=== PATIENT | male | born 1935 | race Caucasian/White ===

== ENCOUNTER 2023-06-30 10:55 | Outpatient (AMB) | payer MEDICARE, SELFPAY ==
--- NOTE | 2023-06-30 11:09 | HO.NEPHOV_ITS ---
HPI HPI Comments History of Present Illness Details Terence is a 87-year-old male whom had the pleasure of seeing in follow- up for his chronic kidney disease, hypertension and gout. He has not had any gout exacerbations. He continues to be active. His blood pressure is at goal. 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 He denies chest pain, shortness of breath, paroxysmal nocturnal dyspnea, orthopnea, pedal edema or urinary symptoms. He does not take any nonsteroidal anti-inflammatories. He takes medications to keep his potassium normal. He did not have any new complaints at the time of this office visit. All other systems have been reviewed and were negative. [facility] Medical History (Updated 06/30/23 @ 14:09 by Walter Segura MD) Secondary hyperparathyroidism Renal cyst Gout Hyperkalemia Hypertension Chronic kidney disease, stage 3b Surgical History (Updated 06/30/23 @ 11:18 by Margarita Nguyen) History of knee replacement Family History (Updated 06/30/23 @ 11:16 by Margarita Nguyen) Mother Kidney disease Father Heart attack Social History (Updated 06/30/23 @ 11:15 by Margarita Nguyen) Alcohol intake: never Patient Tobacco Use Status: Never used Tobacco Vital Signs 06/30/23 11:10 06/30/23 11:55 Height 5 ft Weight 147 lb 8 oz BMI 28.8 BP 146/84 H 130/80 Blood Pressure Location Lt brachial Position Sitting Pulse 62 Pulse Source Pulse Oximeter Pulse Oximetry (%) 99 Oxygen Delivery Method Room Air Physical Exam Vital Signs: Last Vital Signs Pulse 62 06/30/23 11:10 BP 130/80 06/30/23 11:55 Pulse Ox 99 06/30/23 11:10 Oxygen Delivery Method Room Air 06/30/23 11:10 BMI result Body Mass Index 28.8 Const General: comfortable and no acute distress Orientation/consciousness: patient oriented x3 HEENT Head: Yes normocephalic Mouth: Normal oral and palatal mucosa present Eyes EOM: EOMs intact bilaterally Neck Neck: Yes supple Resp Auscultation: clear to auscultation bilaterally Cardio Jugular venous distension: no JVD Rate: regular rate GI Palpation (GI): Soft to palpation Auscultation: normal bowel sounds General: Yes no CVA tenderness Back/Spine/Pelvis Back: no CVA tenderness Skin General skin exam: no rashes or lesions noted Neuro General: patient oriented x3 and moves all extremities Extrem General: Yes no pedal edema Assessment & Plan Assessment & Plan (1) CKD (chronic kidney disease) stage 3, GFR 30-59 ml/min: Code(s): N18.30 - Chronic kidney disease, stage 3 unspecified Qualifiers: Chronic kidney disease stage 3 subtype: stage 3b (GFR 30-44) Qualified Code(s): N18.32 - Chronic kidney disease, stage 3b (2) Hypertension: Code(s): I10 - Essential (primary) hypertension Qualifiers: Hypertension type: primary hypertension Qualified Code(s): I10 - Essential (primary) hypertension (3) Renal cyst: Code(s): N28.1 - Cyst of kidney, acquired (4) Secondary hyperparathyroidism (of renal origin): Code(s): N25.81 - Secondary hyperparathyroidism of renal origin (5) Erectile disorder: Code(s): N52.9 - Male erectile dysfunction, unspecified (6) Hyperkalemia: Code(s): E87.5 - Hyperkalemia Plan Terence has stable renal functions. His serum potassium has been normal. He takes Kayexalate twice a week. He has been tolerating current dose of losartan. He continues to exercise and maintain good hydration. His blood pressure is consistently at goal. He is on statins. He maintains potassium diet. I did not make any medication changes today. Follow-up blood work ordered. All questions answered. Appointment given. Orders: Orders Electrolytes Today I10 - Essential (primary) hypertension, N18.30 - Chronic kidney disease, stage 3 unspecified Blood Urea Nitrogen Today I10 - Essential (primary) hypertension, N18.30 - Chronic kidney disease, stage 3 unspecified Creatinine Today I10 - Essential (primary) hypertension, N18.30 - Chronic kidney disease, stage 3 unspecified Coding Level of Care Code Est Pt Level 3 (46115) Diagnoses Stage 3b chronic kidney disease N18.32 Chronic kidney disease stage 3 subtype: stage 3b (GFR 30-44) Primary hypertension I10 Hypertension type: primary hypertension Renal cyst N28.1 Secondary hyperparathyroidism (of renal origin) N25.81 Erectile disorder N52.9 Hyperkalemia E87.5 Results Reviewed Nephrology Results: No Data to Display
[2023-06-30 11:10] VITALS: BP 146/84; PULSE 62; O2SAT 99; BMI 28.8
[2023-06-30 11:55] VITALS: BP 130/80
== END 2023-06-30 12:03 | disposition home or self-care (01) ==
PROVIDERS: PCP Hospitalist; Visit Provider Internal Medicine Nephrology
DX: N18.32 Chronic kidney disease, stage 3b (principal); I10 Essential (primary) hypertension; N28.1 Cyst of kidney, acquired; N25.81 Secondary hyperparathyroidism of renal origin; N52.9 Male erectile dysfunction, unspecified; E87.5 Hyperkalemia
CPT/HCPCS: 99213

== ENCOUNTER → 2023-06-30 10:55 | Outpatient (BNVA) | payer MEDICARE, SELFPAY | PROVIDERS: PCP Hospitalist; Visit Provider Internal Medicine Nephrology | DX: I12.9 Hypertensive chronic kidney disease with stage 1 through stage 4 chronic kidney disease, or unspecified chronic kidney disease (principal); N18.32 Chronic kidney disease, stage 3b; N25.81 Secondary hyperparathyroidism of renal origin; N28.1 Cyst of kidney, acquired; N52.9 Male erectile dysfunction, unspecified; E87.5 Hyperkalemia | CPT/HCPCS: 99212 ==

== ENCOUNTER 2023-10-27 14:29 | Outpatient (AMB) | payer MEDICARE, SELFPAY ==
--- NOTE | 2023-10-27 14:51 | HO.NEPHOV ---
Vital Signs 10/27/23 14:52 Height 5 ft Weight 144 lb 2 oz BMI 28.1 BP 130/80 Blood Pressure Location Lt brachial Position Sitting Pulse 57 Pulse Source Pulse Oximeter Pulse Oximetry (%) 96 Oxygen Delivery Method Room Air Intake Visit Reasons: 4M follow up/ [facility] [employer] Required: No Accompanied by: Self / Same As Patient Allergies amlodipine Allergy (Verified 10/27/23 14:54) Unknown penicillamine Allergy (Verified 10/27/23 14:54) Unknown Penicillins Allergy (Verified 10/27/23 14:54) Unknown red dye Allergy (Verified 10/27/23 14:54) Unknown HPI Comments Details: Terence is a 87-year-old male whom had the pleasure of seeing in follow-up for his chronic kidney disease, hypertension and gout. He has not had any gout exacerbations. He continues to be active. His blood pressure is at goal. 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 He denies chest pain, shortness of breath, paroxysmal nocturnal dyspnea, orthopnea, pedal edema or urinary symptoms. He does not take any nonsteroidal anti-inflammatories. He takes medications to keep his potassium normal. He did not have any new complaints at the time of this office visit. All other systems have been reviewed and were negative. [facility] Medical History (Updated 06/30/23 @ 14:09 by Walter Segura MD) Secondary hyperparathyroidism Renal cyst Gout Hyperkalemia Hypertension Chronic kidney disease, stage 3b Surgical History History of knee replacement Family History Mother Kidney disease Father Heart attack Social History Alcohol intake: never Patient Tobacco Use Status: Never used Tobacco Physical Exam Vital Signs: Last Vital Signs Pulse 57 10/27/23 14:52 BP 130/80 10/27/23 14:52 Pulse Ox 96 10/27/23 14:52 Oxygen Delivery Method Room Air 10/27/23 14:52 BMI result Body Mass Index 28.1 Const General: comfortable and no acute distress Orientation/consciousness: patient oriented x3 HEENT Head: Yes normocephalic Mouth: Normal oral and palatal mucosa present Eyes EOM: EOMs intact bilaterally Neck Neck: Yes supple Resp Auscultation: clear to auscultation bilaterally Cardio Jugular venous distension: no JVD Rate: regular rate GI Palpation (GI): Soft to palpation Auscultation: normal bowel sounds General: Yes no CVA tenderness Back/Spine/Pelvis Back: no CVA tenderness Skin General skin exam: no rashes or lesions noted Neuro General: patient oriented x3 and moves all extremities Extrem General: Yes no pedal edema Results Reviewed Nephrology Results: No Data to Display Assessment & Plan Assessment & Plan (1) Secondary hyperparathyroidism (of renal origin): Code(s): N25.81 - Secondary hyperparathyroidism of renal origin Category: Medical (2) Hyperkalemia: Code(s): E87.5 - Hyperkalemia Category: Medical (3) Renal cyst: Code(s): N28.1 - Cyst of kidney, acquired Category: Medical (4) Hypertension: Code(s): I10 - Essential (primary) hypertension Category: Medical Qualifiers: Hypertension type: primary hypertension Qualified Code(s): I10 - Essential (primary) hypertension (5) CKD (chronic kidney disease) stage 3, GFR 30-59 ml/min: Code(s): N18.30 - Chronic kidney disease, stage 3 unspecified Category: Medical Qualifiers: Chronic kidney disease stage 3 subtype: stage 3b (GFR 30-44) Qualified Code(s): N18.32 - Chronic kidney disease, stage 3b Virginie Pratt has stable renal functions. His serum potassium has been high normal. He takes Kayexalate twice a week. He has been tolerating current dose of losartan. He continues to exercise and maintain good hydration. His blood pressure is consistently at goal. He is on statins. He maintains potassium diet. I did not make any medication changes today. Follow-up blood work ordered. All questions answered. Appointment given. Orders: Orders Vitamin D 25-OH Total Today E87.5 - Hyperkalemia, I10 - Essential (primary) hypertension, N18.32 - Chronic kidney disease, stage 3b, N25.81 - Secondary hyperparathyroidism of renal origin, N28.1 - Cyst of kidney, acquired Creatinine Today E87.5 - Hyperkalemia, I10 - Essential (primary) hypertension, N18.32 - Chronic kidney disease, stage 3b, N25.81 - Secondary hyperparathyroidism of renal origin, N28.1 - Cyst of kidney, acquired Blood Urea Nitrogen Today E87.5 - Hyperkalemia, I10 - Essential (primary) hypertension, N18.32 - Chronic kidney disease, stage 3b, N25.81 - Secondary hyperparathyroidism of renal origin, N28.1 - Cyst of kidney, acquired Electrolytes Today E87.5 - Hyperkalemia, I10 - Essential (primary) hypertension, N18.32 - Chronic kidney disease, stage 3b, N25.81 - Secondary hyperparathyroidism of renal origin, N28.1 - Cyst of kidney, acquired Parathyroid Hormone Intact Today E87.5 - Hyperkalemia, I10 - Essential (primary) hypertension, N18.32 - Chronic kidney disease, stage 3b, N25.81 - Secondary hyperparathyroidism of renal origin, N28.1 - Cyst of kidney, acquired Medications: Changed From sodium polystyrene sulfonate PO To sodium polystyrene sulfonate 15 grams PO .twice weekly 90 days 454 grams 6RF Coding Level of Care Code Est Pt Level 4 (00504) Diagnoses Secondary hyperparathyroidism (of renal origin) N25.81 Hyperkalemia E87.5 Renal cyst N28.1 Primary hypertension I10 Hypertension type: primary hypertension Stage 3b chronic kidney disease N18.32 Chronic kidney disease stage 3 subtype: stage 3b (GFR 30-44)
[2023-10-27 14:52] VITALS: BP 130/80; PULSE 57; O2SAT 96; BMI 28.1
== END 2023-10-27 15:25 | disposition home or self-care (01) ==
PROVIDERS: PCP Hospitalist; Visit Provider Internal Medicine Nephrology
DX: N25.81 Secondary hyperparathyroidism of renal origin (principal); E87.5 Hyperkalemia; N28.1 Cyst of kidney, acquired; I10 Essential (primary) hypertension; N18.32 Chronic kidney disease, stage 3b
CPT/HCPCS: 99214

== ENCOUNTER → 2023-10-27 14:29 | Outpatient (BNVA) | payer MEDICARE, SELFPAY | PROVIDERS: PCP Hospitalist; Visit Provider Internal Medicine Nephrology | DX: I12.9 Hypertensive chronic kidney disease with stage 1 through stage 4 chronic kidney disease, or unspecified chronic kidney disease (principal); N18.32 Chronic kidney disease, stage 3b; N25.81 Secondary hyperparathyroidism of renal origin; N28.1 Cyst of kidney, acquired; E87.5 Hyperkalemia | CPT/HCPCS: 99212 ==

== ENCOUNTER 2024-02-23 15:38 | Outpatient (AMB) | payer MEDICARE, SELFPAY ==
[2024-02-23 16:12] VITALS: BP 140/80; PULSE 53; O2SAT 100; BMI 27.8
--- NOTE | 2024-02-23 16:12 | HO.NEPHOV_ITS ---
Vital Signs 02/23/24 16:12 Height 5 ft Weight 142 lb 4 oz BMI 27.8 BP 140/80 H Blood Pressure Location Lt brachial Position Sitting Pulse 53 Pulse Source Pulse Oximeter Pulse Oximetry (%) 100 Oxygen Delivery Method Room Air Intake Visit Reasons: 4mon follow up- [facility] [place] [employer] Operator Required: No Accompanied by: Self / Same As Patient Allergies amlodipine Allergy (Verified 02/23/24 16:14) Unknown penicillamine Allergy (Verified 02/23/24 16:14) Unknown Penicillins Allergy (Verified 02/23/24 16:14) Unknown red dye Allergy (Verified 02/23/24 16:14) Unknown HPI Comments Details: Terence is a 88-year-old male whom had the pleasure of seeing in follow-up for his chronic kidney disease, hypertension and gout. He has not had any gout exacerbations. He continues to be active. His blood pressure is at goal. 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 He denies chest pain, shortness of breath, paroxysmal nocturnal dyspnea, orthopnea, pedal edema or urinary symptoms. He does not take any nonsteroidal anti-inflammatories. He takes medications to keep his potassium normal. He did not have any new complaints at the time of this office visit. All other systems have been reviewed and were negative. [facility] Medical History (Updated 06/30/23 @ 14:09 by Walter Segura MD) Secondary hyperparathyroidism Renal cyst Gout Hyperkalemia Hypertension Chronic kidney disease, stage 3b Surgical History History of knee replacement Family History Mother Kidney disease Father Heart attack Social History Alcohol intake: never Patient Tobacco Use Status: Never used Tobacco Review of Systems Const All systems reviewed & are unremarkable except as noted in HPI and below Physical Exam Vital Signs: Last Vital Signs Pulse 53 02/23/24 16:12 BP 160/80 H 02/23/24 16:12 Pulse Ox 100 02/23/24 16:12 Oxygen Delivery Method Room Air 02/23/24 16:12 BMI result Body Mass Index 27.8 Const General: comfortable and no acute distress Orientation/consciousness: patient oriented x3 HEENT Head: Yes normocephalic Mouth: Normal oral and palatal mucosa present Eyes EOM: EOMs intact bilaterally Neck Neck: Yes supple Resp Auscultation: clear to auscultation bilaterally Cardio Jugular venous distension: no JVD Rate: regular rate GI Palpation (GI): Soft to palpation Auscultation: normal bowel sounds General: Yes no CVA tenderness Back/Spine/Pelvis Back: no CVA tenderness Skin General skin exam: no rashes or lesions noted Neuro General: patient oriented x3 and moves all extremities Extrem General: Yes no pedal edema Results Reviewed Nephrology Results: No Data to Display Assessment & Plan Assessment & Plan (1) CKD (chronic kidney disease) stage 3, GFR 30-59 ml/min: Code(s): N18.30 - Chronic kidney disease, stage 3 unspecified Category: Medical Qualifiers: Chronic kidney disease stage 3 subtype: stage 3b (GFR 30-44) Qualified Code(s): N18.32 - Chronic kidney disease, stage 3b (2) Hypertension: Code(s): I10 - Essential (primary) hypertension Category: Medical Qualifiers: Hypertension type: primary hypertension Qualified Code(s): I10 - Essent ial (primary) hypertension (3) Renal cyst: Code(s): N28.1 - Cyst of kidney, acquired Category: Medical (4) Secondary hyperparathyroidism (of renal origin): Code(s): N25.81 - Secondary hyperparathyroidism of renal origin Category: Medical Plan Terence has stable renal functions. His serum potassium has been high normal. He takes Kayexalate twice a week. He has been tolerating current dose of losartan. He continues to exercise and maintain good hydration. His blood pressure is consistently at goal at home. He is on statins. He maintains potassium diet. I did not make any medication changes today. Follow-up blood work ordered. All questions answered. Appointment given. Orders: Orders Creatinine Today I10 - Essential (primary) hypertension, N18.32 - Chronic kidney disease, stage 3b, N25.81 - Secondary hyperparathyroidism of renal origin, N28.1 - Cyst of kidney, acquired Blood Urea Nitrogen Today I10 - Essential (primary) hypertension, N18.32 - Chronic kidney disease, stage 3b, N25.81 - Secondary hyperparathyroidism of renal origin, N28.1 - Cyst of kidney, acquired Electrolytes Today I10 - Essential (primary) hypertension, N18.32 - Chronic kidney disease, stage 3b, N25.81 - Secondary hyperparathyroidism of renal origin, N28.1 - Cyst of kidney, acquired Coding Level of Care Code Est Pt Level 4 (26469) Diagnoses Stage 3b chronic kidney disease N18.32 Chronic kidney disease stage 3 subtype: stage 3b (GFR 30-44) Primary hypertension I10 Hypertension type: primary hypertension Renal cyst N28.1 Secondary hyperparathyroidism (of renal origin) N25.81
== END 2024-02-23 16:39 | disposition home or self-care (01) ==
PROVIDERS: PCP Hospitalist; Visit Provider Internal Medicine Nephrology
DX: N18.32 Chronic kidney disease, stage 3b (principal); I10 Essential (primary) hypertension; N28.1 Cyst of kidney, acquired; N25.81 Secondary hyperparathyroidism of renal origin
CPT/HCPCS: 99214

== ENCOUNTER → 2024-02-23 15:38 | Outpatient (BNVA) | payer MEDICARE, SELFPAY | PROVIDERS: PCP Hospitalist; Visit Provider Internal Medicine Nephrology | DX: I12.9 Hypertensive chronic kidney disease with stage 1 through stage 4 chronic kidney disease, or unspecified chronic kidney disease (principal); N18.32 Chronic kidney disease, stage 3b; N28.1 Cyst of kidney, acquired; N25.81 Secondary hyperparathyroidism of renal origin | CPT/HCPCS: 99212 ==

== ENCOUNTER 2024-08-16 14:06 | Outpatient (AMB) | payer MEDICARE, SELFPAY ==
--- NOTE | 2024-08-16 14:16 | HO.NEPHOV ---
Vital Signs 08/16/24 14:17 Height 5 ft Weight 145 lb 4 oz BMI 28.4 BP 120/70 Blood Pressure Location Lt brachial Position Sitting Intake Visit Reasons: 6mon follow up-[facility] [employer] Required: No Accompanied by: Spouse Allergies amlodipine Allergy (Verified 08/16/24 14:16) Unknown penicillamine Allergy (Verified 08/16/24 14:16) Unknown Penicillins Allergy (Verified 08/16/24 14:16) Unknown red dye Allergy (Verified 08/16/24 14:16) Unknown HPI Comments Details: Terence is a 88-year-old male whom had the pleasure of seeing in follow-up for his chronic kidney disease, hypertension and gout. He has not had any gout exacerbations. He continues to be active. His blood pressure is at goal. 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 He denies chest pain, shortness of breath, paroxysmal nocturnal dyspnea, orthopnea, pedal edema or urinary symptoms. He does not take any nonsteroidal anti-inflammatories. He takes medications to keep his potassium normal. He has been started on Amlodipine [address] Owusu. He did not have any new complaints at the time of this office visit. All other systems have been reviewed and were negative. [facility] Medical History (Updated 06/30/23 @ 14:09 by Walter Segura MD) Secondary hyperparathyroidism Renal cyst Gout Hyperkalemia Hypertension Chronic kidney disease, stage 3b Surgical History History of knee replacement Family History Mother Kidney disease Father Heart attack Social History Alcohol intake: never Patient Tobacco Use Status: Never used Tobacco Review of Systems Const All systems reviewed & are unremarkable except as noted in HPI and below Physical Exam Vital Signs: Last Vital Signs BP 166/70 H 08/16/24 14:17 BMI result Body Mass Index 28.4 Const General: comfortable and no acute distress Orientation/consciousness: patient oriented x3 HEENT Head: Yes normocephalic Mouth: Normal oral and palatal mucosa present Eyes EOM: EOMs intact bilaterally Neck Neck: Yes supple Resp Auscultation: clear to auscultation bilaterally Cardio Jugular venous distension: no JVD Rate: regular rate GI Palpation (GI): Soft to palpation Auscultation: normal bowel sounds Skin General skin exam: no rashes or lesions noted Neuro General: patient oriented x3 and moves all extremities Extrem General: Yes no pedal edema Results Reviewed Nephrology Results: No Data to Display Assessment & Plan Assessment & Plan (1) Secondary hyperparathyroidism (of renal origin): Code(s): N25.81 - Secondary hyperparathyroidism of renal origin Category: Medical (2) Hyperkalemia: Code(s): E87.5 - Hyperkalemia Category: Medical (3) Renal cyst: Code(s): N28.1 - Cyst of kidney, acquired Category: Medical (4) Hypertension: Code(s): I10 - Essential (primary) hypertension Category: Medical Qualifiers: Hypertension type: primary hypertension Qualified Code(s): I10 - Essential (primary) hypertension (5) CKD (chronic kidney disease) stage 3, GFR 30-59 ml/min: Code(s): N18.30 - Chronic kidney disease, stage 3 unspecified Category: Medical Qualifiers: Chronic kidney disease stage 3 subtype: stage 3b (GFR 30-44) Qualified Code(s): N18.32 - Chronic kidney disease, stage 3b Virginie Pratt has stable renal functions. His serum potassium has been high normal. He takes Kayexalate twice a week. He has been tolerating current dose of losartan. He continues to exercise and maintain good hydration. I started him on Vitamin D 81080 U once a week. His blood pressure is consistently at goal at home. He is on statins. He maintains potassium diet. I did not make any medication changes today. Follow-up blood work ordered. All questions answered. Appointment given. Orders: Orders Vitamin D 25-OH Total 6 Months E87.5 - Hyperkalemia, I10 - Essential (primary) hypertension, N18.32 - Chronic kidney disease, stage 3b, N25.81 - Secondary hyperparathyroidism of renal origin, N28.1 - Cyst of kidney, acquired Creatinine 6 Months E87.5 - Hyperkalemia, I10 - Essential (primary) hypertension, N18.32 - Chronic kidney disease, stage 3b, N25.81 - Secondary hyperparathyroidism of renal origin, N28.1 - Cyst of kidney, acquired Calcium 6 Months E87.5 - Hyperkalemia, I10 - Essential (primary) hypertension, N18.32 - Chronic kidney disease, stage 3b, N25.81 - Secondary hyperparathyroidism of renal origin, N28.1 - Cyst of kidney, acquired Blood Urea Nitrogen 6 Months E87.5 - Hyperkalemia, I10 - Essential (primary) hypertension, N18.32 - Chronic kidney disease, stage 3b, N25.81 - Secondary hyperparathyroidism of renal origin, N28.1 - Cyst of kidney, acquired Electrolytes 6 Months E87.5 - Hyperkalemia, I10 - Essential (primary) hypertension, N18.32 - Chronic kidney disease, stage 3b, N25.81 - Secondary hyperparathyroidism of renal origin, N28.1 - Cyst of kidney, acquired Medications: New cholecalciferol (vitamin D3) 1,250 mcg PO QWEEK 14 caps 1RF Coding Level of Care Code Est Pt Level 4 (03122) Diagnoses Secondary hyperparathyroidism (of renal origin) N25.81 Hyperkalemia E87.5 Renal cyst N28.1 Primary hypertension I10 Hypertension type: primary hypertension Stage 3b chronic kidney disease N18.32 Chronic kidney disease stage 3 subtype: stage 3b (GFR 30-44)
[2024-08-16 14:17] VITALS: BP 120/70; BMI 28.4
--- OUTSIDE RECORDS SUMMARY | 2024-08-16 17:17 | XMS_ITS | Patient Health Record ---
Author Organization [facility] Address [address] [place] [address] Care Team Providers Care Software Engineer Web Applications Name Role Phone KINSEY CLOUD Primary Care Provider Sage Arcos Unavailable [phone] Allergies Allergen (clinical drug ingredient) Drug/Non Drug Allergy documented on EMR Reaction Allergy Type Onset Date Status red dye (uncoded) Unknown Allergy Ac tive amlodipine Amlodipine Besylate Unknown Drug Allergy Active penicillamine Penicillamine Unknown Drug Allergy Active Results Component Value Reference Range Notes Jose R Mccauley LP Default Reviewed date:09/07/2023 04:27:11 PM Interpretation: Performing Lab:[facility], [facility], Phone - [phone], Director - Frieda Notes/Report: Jose R Mccauley LP Default A hand-written panel/profile was received from your office. In accordance with the [facility] Ambiguous Test Code Policy dated December 2002, we have completed your order by using the closest currently or formerly recognized AMA panel. We have assigned Lipid Panel, Test Code #940663 to this request. If this is not the testing you wished to receive on this specimen, please contact the [facility] Client Inquiry/Technical Services Department to clarify the test order. We appreciate your business. Comp. Metabolic Panel ([id number] Reviewed date:09/08/2023 08:24:50 AM Interpretation: Performing Lab:[facility], [address], [place], Phone - [phone], Director - Frieda Notes/Report: Glucose 130 70-99 mg/dL BUN 61 8-27 mg/dL Creatinine 2.09 0.76-1.27 mg/dL eGFR 30 >59 mL/min/1.73 BUN/Creatinine Ratio 29 10-24 Sodium 143 134-144 mmol/L Potassium 5.8 3.5-5.2 mmol/L Chloride 107 96-106 mmol/L Carbon Dioxide, Total 20 20-29 mmol/L Calcium 9.7 8.6-10.2 mg/dL Protein, Total 7.0 6.0-8.5 g/dL Albumin 4.2 3.7-4.7 g/dL Globulin, Total 2.8 1.5-4.5 g/dL A/G Ratio 1.5 1.2-2.2 Bilirubin, Total 0.6 0.0-1.2 mg/dL Alkaline Phosphatase 111 44-121 IU/L AST (SGOT) 18 0-40 IU/L ALT (SGPT) 12 0-44 IU/L Lipid Panel-[id number] Reviewed date:09/07/2023 04:29:09 PM Interpretation: Performing Lab:[facility], [address] [place] [address], Phone - [phone], Director - MDJodry Notes/Report: Cholesterol, Total 166 100-199 mg/dL Triglycerides 71 0-149 mg/dL HDL Cholesterol 60 >39 mg/dL VLDL Cholesterol Rui 14 5-40 mg/dL LDL Chol Calc ([facility]) 92 0-99 mg/dL Albumin/Creatinine Ratio,Uri ne-[id number] Reviewed date:09/07/2023 04:29:05 PM Interpretation: Performing Lab:[facility], [address] [place] [address], Phone - [phone], Director - MDJodry Notes/Report: Creatinine, Urine 79.8 Not Estab. mg/dL Albumin, Urine 58.4 Not Estab. ug/mL Alb/Creat Ratio 73 0-29 mg/g creat Normal: 0 - 29 Moderately increased: 30 - 300 Severely increased: >300 Hgb A1c with eAG Estimation- [id number] Reviewed date:09/07/2023 04:29:03 PM Interpretation: Performing Lab:[facility], [address] [place] [address], Phone - [phone], Director - MDJodry Notes/Report: Hemoglobin A1c 5.9 4.8-5.6 % . Prediabetes: 5.7 - 6.4 Diabetes: >6.4 Glycemic control for adults with diabetes: <7.0 Estim. Avg Glu (eAG) 123 Ambig Abbrev BMP8 Default A hand-written panel/profile was received from your office. In accordance with the [facility] Ambiguous Test Code Policy dated December 2002, we have completed your order by using the closest currently or formerly recognized AMA panel. We have assigned Basic Metabolic Panel (8), Test Code #[id number] to this request. If this is not the testing you wished to receive on this specimen, please contact the [facility] Client Inquiry/Technical Services Department to clarify the test order. We appreciate your business. Jose R Mccauley CMP14 Default A hand-written panel/profile was received from your office. In accordance with the [facility] Ambiguous Test Code Policy dated December 2002, we have completed your order by using the closest currently or formerly recognized AMA panel. We have assigned Comprehensive Metabolic Panel (14), Test Code #998604 to this request. If this is not the testing you wished to receive on this specimen, please contact the [facility] Client Inquiry/Technical Services Department to clarify the test order. We appreciate your business. Reason For Referral Reason Evaluation and manag ement Diagnosis 1 Abnormal result of o ther cardiovascular function study (R94.39) Referral Organization [facility] ter Referring Provider First Name EUCEDA Referring Provider Last Name JESSICA Referring Provider Speciality Internal M edicine Referred Provider Specialty Cardiology General Notes Referral sent - Dept will call patient for scheduling., Facundo Daly 10/31/2023 04:34:05 PM > Referral Priority Routine Medications Medication SIG (Take, Route, Frequency, Duration) Notes Start Date End Date Status Benzonatate 100 MG 1 capsule as needed Orally Three times a day for 21 days Active Atorvastatin Calcium 10 MG 1 tablet Oral ly Once a day for 90 days Active Benzonatate 100 MG 1 capsule as needed Orally Three times a day for 7 days 07/27/2023 Not-Taking Carvedilol 6.25 MG TAKE 1 TABLET BY EDMAR TH TWICE A DAY WITH FOOD for 90 Active Allopurinol 100 MG 1 tablet Orally twic e a day for 90 days Active Losartan Potassium 25 MG 1 tablet Orally Once a day for 90 days Active Timolol Maleate 0.5 % 1 drop into both e ye Ophthalmic twice a day Active Veltassa 8.4 GM 1 packet dissolved i n water. Take other medications at least 3 hours before or 3 hours after this medication Orally once a week Active Hydrocortisone Activ e PreserVision AREDS - as directed Orally TWICE A DAY Active Immunizations Vaccine Route Administration Date Status Comme nts COVID Unknown 07/05/2020 Administered Moderna COVID Unknown 08/08/2020 Administered Moderna COVID Unknown 01/27/2021 Administered Moderna at C VS-booster Influenza, high dose seasonal Unknown 03/13/2019 Administered Influenza, high dose seasonal Unknown 03/16/2021 Administered Shingrix Unknown 04/30/2021 Administered Social History Tobacco Use: Social History Observation Description Date Details (start date - stop date) Never Smoker NA - NA Tobacco Use/Smoking Question Answer Notes Are you a nonsmoker Alcohol Screen (Audit-C) Question Answer Notes Did you have a drink containing alcohol in the p ast year? 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) Active confirmed Problem Raynaud's disease (300102191) Raynaud's syndrome without gangrene (I73.00) Active confirmed Problem Low back pain (289059610) Low back pain (M54.5) Active confirmed Problem Chronic kidney disease (870390421) Chronic kidney disease, unspecified (N18.9) Active confirmed Problem Heart murmur (finding) (24004048) Cardiac murmur, unspecified (R01.1) Active confirmed Problem Change in bowel habit (89730731) Change in bowel habit (R19.4) Active confirmed Problem Impaired fasting glucose (429105043) Impaired fasting glucose (R73.01) Active confirmed Problem Ventricular premature depolarization (050978322) Ventricular premature depolarization (I49.3) Active confirmed Problem Benign prostatic hypertrophy without outflow obstruction (050411334) Benign prostatic hyperplasia without lower urinary tract symptoms (N40.0) Active confirmed Vital Signs Heart Rate 70 /min 05/17/2024 Temperature 97.1 degrees Fahrenheit 05/17/2024 Blood pressure diastolic 80 mm Hg 05/17/2024 Oximetry 97 % 05/17/2024 Height 61.61 in 05/17/2024 Blood pressure systolic 160 mm Hg 05/17/2024 Weight 146.2 lbs 05/17/2024 BMI 27.08 kg/m2 05/17/2024 Encounters Encounter Location Date Provider Diagnosis [facility] [address] [place] [address] 09/15/2023 EUCEDA GUL Essential (primary) hypertension I10 ; Hyperlipidemia, unspecified E78.5 and Chronic kidney disease, unspecified N18.[address] [place] [address] 09/28/2023 EUCEDA GUL Chest pain, unspecified R07.9 [facility] [address] [place] [address] 12/20/2023 KINSEY LOPEZL Encounter for genera l adult medical examination without abnormal findings Z00.00 ; Essential (primary) hypertension I10 ; Hyperlipidemia, unspecified E78.5 and Chronic kidney disease, unspecified N18.9 [facility] [address] [place] [address] 01/19/2024 EUCEDA GUL Essential (primary) hypertension I10 ; Hyperlipidemia, unspecified E78.5 ; Chronic kidney disease, unspecified N18.9 and Impaired fasting glucose R73.[address] [place] [address] 04/11/2024 Ghadeer Mazloum Cough R05.[address] [place] [address] 05/17/2024 EUCEDA GUL Essential (primary) hypertension I10 ; Chronic kidney disease, unspecified N18.9 ; Impaired fasting glucose R73.01 and Hyperlipidemia, unspecified E78.[address] [place] [address] 10/25/2023 EUCEDA GUL [address] [place] [address] 10/31/2023 [facility] [address] [place] [address] 12/14/[address] [place] [address] 12/14/[address] [place] [address] 01/23/[address] [place] [address] 03/13/[address] [place] [address] 03/15/[address] [place] [address] 06/14/2024 [facility] Assessments Encounter Date Diagnosis (ICD Code) Assessment Notes Treatment Notes Treatment Clinical Notes Section Notes 09/28/2023 Chest pain, unspecified (ICD-10 - R07.9) Mr. Cornejo is an 87-year-old gentleman with CKD stage III, hypertension, hyperlipidemia and gout here complaining of intermittent chest pain associated with numbness/tingling usually after working out. Plan is as follows: Chest pain. He is high risk for coronary artery disease considering history of hypertension, hyperlipidemia, TIA, chronic kidney disease. Electrocardiogram was done today which is normal sinus rhythm at 57 bpm with right bundle branch block with no acute ST or T wave changes. Ordered stress echocardiogram. General health concerns discussed with patient. Scribe services used to formulate this note under HIPAA compliance and under [place] law mandated for scribe services. Patient aware of service. Verbal consent and written consent taken from the patient. Patient understands and verbalizes understanding of the scribes services and all questions answered regarding scribes services. Patient agrees to use of scribes services. 12/20/2023 Essential (primary) hypertension (ICD-10 - I10) Mr. Cornejo is an 88-year-old gentleman with CKD stage III, hypertension, hyperlipidemia and gout here for medicare annual wellness visit. Plan is as follows: Hypertension with chronic kidney disease. His blood pressure is running high in the office today. Cut back on sodium intake. Advised appropriate hydration, cardio exercises and weight loss. Continue Carvedilol 6.25 MG and Losartan 25 MG once a day. Advised appropriate hydration. Hyperlipidemia. Last lipid panel within normal limits. Continue Atorvastatin 10 MG at night. Gout. Stable on Allopurinol 100 MG twice a day. Chronic kidney disease stage 4. He does not appear to be in volume overload. Advised appropriate hydration. Avoid NSAIDs. He sees Dr. Segura. Impaired fasting glucose. A1c 5.9. Fasting sugars 130. Dietary restrictions, regimental exercise and weight loss advised. Eye screening. He sees his sandblaster glass regularly. Dental screening. He sees dentist regularly. Colon cancer screening. He had his colonoscopy done every 5 years. Immunizations. He is up-to-date on his COVID, influenza, shingles and pneumonia vaccinations. General health concerns discussed with patient. Scribe services used to formulate this note under HIPAA compliance and under [place] law mandated for scribe services. Patient aware of service. Verbal consent and written consent taken from the patient. Patient understands and verbalizes understanding of the scribes services and all questions answered regarding scribes services. Patient agrees to use of scribes services. 12/20/2023 Encounter for general adult medical examination without abnormal findings (ICD-10 - Z00.00) Mr. Cornejo is an 88-year-old gentleman with CKD stage III, hypertension, hyperlipidemia and gout here for medicare annual wellness visit. Plan is as follows: Hypertension with chronic kidney disease. His blood pressure is running high in the office today. Cut back on sodium intake. Advised appropriate hydration, cardio exercises and weight loss. Continue Carvedilol 6.25 MG and Losartan 25 MG once a day. Advised appropriate hydration. Hyperlipidemia. Last lipid panel within normal limits. Continue Atorvastatin 10 MG at night. Gout. Stable on Allopurinol 100 MG twice a day. Chronic kidney disease stage 4. He does not appear to be in volume overload. Advised appropriate hydration. Avoid NSAIDs. He sees Dr. Segura. Impaired fasting glucose. A1c 5.9. Fasting sugars 130. Dietary restrictions, regimental exercise and weight loss advised. Eye screening. He sees his sandblaster glass regularly. Dental screening. He sees dentist regularly. Colon cancer screening. He had his colonoscopy done every 5 years. Immunizations. He is up-to-date on his COVID, influenza, shingles and pneumonia vaccinations. General health concerns discussed with patient. Scribe services used to formulate this note under HIPAA compliance and under [place] law mandated for scribe services. Patient aware of service. Verbal consent and written consent taken from the patient. Patient understands and verbalizes understanding of the scribes services and all questions answered regarding scribes services. Patient agrees to use of scribes services. 01/19/2024 Essential (primary) hypertension (ICD-10 - I10) Mr. Cornejo is an 88-year-old gentleman with CKD stage III, hypertension, hyperlipidemia and gout here for follow up. Plan is as follows: Hypertension with chronic kidney disease. Blood pressure is within reasonable limits. Continue Carvedilol 6.25 MG and Losartan 25 MG once a day. Advised appropriate hydration. Hyperlipidemia. Last lipid panel within normal limits. Continue Atorvastatin 10 MG at night. Gout. Stable on Allopurinol 100 MG twice a day. Chronic kidney disease stage 4. He does not appear to be in volume overload. Advised appropriate hydration. Avoid NSAIDs. He sees Dr. Segura. Impaired fasting glucose. A1c 5.9. Fasting sugars 130. Dietary restrictions, regimental exercise and weight loss advised. General health concerns discussed with patient. Scribe services used to formulate this note under HIPAA compliance and under [place] law mandated for scribe services. Patient aware of service. Verbal consent and written consent taken from the patient. Patient understands and verbalizes understanding of the scribes services and all questions answered regarding scribes services. Patient agrees to use of scribes services. 04/11/2024 Cough (ICD-10 - R05.9) Mr. Cornejo is an 88-year-old gentleman with CKD stage III, hypertension, hyperlipidemia and gout here for cough. Plan as follows: Cough - DDx viral URI. Lungs are CTAB. Started patient on benzonatate. He can also use [id number] Mucinex. Advised patient that if he develops any fever, chills, productive cough with yellowish or greenish mucus then he should contact the office to get an accident to rule out any abnormalities. I have rendered the services for this patient under direct supervision of Dr. Cloud, who did not see the patient but was available upon request 05/17/2024 Essential (primary) hypertension (ICD-10 - I10) Mr. Cornejo is an 88-year-old gentleman with CKD stage III, hypertension, hyperlipidemia and gout here for follow-up Plan as follows: hypertension. Blood pressure is running high in the office. His blood pressure fluctuates. We advised to monitor his blood pressure and if it is still running high at home he will call us or his explosive operator grenade Dr. Segura. Advised low-sodium diet. Hyperlipidemia. Continue on atorvastatin 10 mg daily. Gout. Continue allopurinol 100 mg daily and monitor renal function. Chronic kidney disease. He does not appear to be in volume overload. Follow-up with explosive operator grenade. Screening blood work before next appointment 05/17/2024 Chronic kidney disease, unspecified (ICD-10 - N18.9) Mr. Cornejo is an 88-year-old gentleman with CKD stage III, hypertension, hyperlipidemia and gout here for follow-up Plan as follows: hypertension. Blood pressure is running high in the office. His blood pressure fluctuates. We advised to monitor his blood pressure and if it is still running high at home he will call us or his explosive operator grenade Dr. Segura. Advised low-sodium diet. Hyperlipidemia. Continue on atorvastatin 10 mg daily. Gout. Continue allopurinol 100 mg daily and monitor renal function. Chronic kidney disease. He does not appear to be in volume overload. Follow-up with explosive operator grenade. Screening blood work before next appointment 09/15/2023 Essential (primary) hypertension (ICD-10 - I10) Mr. Cornejo is an 87-year-old gentleman with CKD stage III, hypertension, hyperlipidemia and gout here for follow up. Plan is as follows: Hypertension with chronic kidney disease. His blood pressure is running high in the office today. Cut back on sodium intake. Advised appropriate hydration, cardio exercises and weight loss. Continue Carvedilol 6.25 MG and Losartan 25 MG once a day. Advised appropriate hydration. Hyperlipidemia. Last lipid panel within normal limits. Continue Atorvastatin 10 MG at night. Gout. Stable on Allopurinol 100 MG twice a day. Chronic kidney disease stage 3b. He does not appear to be in volume overload. Advised appropriate hydration. Avoid NSAIDs. He sees Dr. Segura. General health concerns discussed with patient. Scribe services used to formulate this note under HIPAA compliance and under [place] law mandated for scribe services. Patient aware of service. Verbal consent and written consent taken from the patient. Patient understands and verbalizes understanding of the scribes services and all questions answered regarding scribes services. Patient agrees to use of scribes services. 09/15/2023 Hyperlipidemia, unspecified (ICD-10 - E78.5) Mr. Cornejo is an 87-year-old gentleman with CKD stage III, hypertension, hyperlipidemia and gout here for follow up. Plan is as follows: Hypertension with chronic kidney disease. His blood pressure is running high in the office today. Cut back on sodium intake. Advised appropriate hydration, cardio exercises and weight loss. Continue Carvedilol 6.25 MG and Losartan 25 MG once a day. Advised appropriate hydration. Hyperlipidemia. Last lipid panel within normal limits. Continue Atorvastatin 10 MG at night. Gout. Stable on Allopurinol 100 MG twice a day. Chronic kidney disease stage 3b. He does not appear to be in volume overload. Advised appropriate hydration. Avoid NSAIDs. He sees Dr. Segura. General health concerns discussed with patient. Scribe services used to formulate this note under HIPAA compliance and under [place] law mandated for scribe services. Patient aware of service. Verbal consent and written consent taken from the patient. Patient understands and verbalizes understanding of the scribes services and all questions answered regarding scribes services. Patient agrees to use of scribes services. 05/17/2024 Impaired fasting glucose (ICD-10 - R73.01) Mr. Cornejo is an 88-year-old gentleman with CKD stage III, hypertension, hyperlipidemia and gout here for follow-up Plan as follows: hypertension. Blood pressure is running high in the office. His blood pressure fluctuates. We advised to monitor his blood pressure and if it is still running high at home he will call us or his explosive operator grenade Dr. Segura. Advised low-sodium diet. Hyperlipidemia. Continue on atorvastatin 10 mg daily. Gout. Continue allopurinol 100 mg daily and monitor renal function. Chronic kidney disease. He does not appear to be in volume overload. Follow-up with explosive operator grenade. Screening blood work before next appointment 01/19/2024 Hyperlipidemia, unspecified (ICD-10 - E78.5) Mr. Cornejo is an 88-year-old gentleman with CKD stage III, hypertension, hyperlipidemia and gout here for follow up. Plan is as follows: Hypertension with chronic kidney disease. Blood pressure is within reasonable limits. Continue Carvedilol 6.25 MG and Losartan 25 MG once a day. Advised appropriate hydration. Hyperlipidemia. Last lipid panel within normal limits. Continue Atorvastatin 10 MG at night. Gout. Stable on Allopurinol 100 MG twice a day. Chronic kidney disease stage 4. He does not appear to be in volume overload. Advised appropriate hydration. Avoid NSAIDs. He sees Dr. Segura. Impaired fasting glucose. A1c 5.9. Fasting sugars 130. Dietary restrictions, regimental exercise and weight loss advised. General health concerns discussed with patient. Scribe services used to formulate this note under HIPAA compliance and under [place] law mandated for scribe services. Patient aware of service. Verbal consent and written consent taken from the patient. Patient understands and verbalizes understanding of the scribes services and all questions answered regarding scribes services. Patient agrees to use of scribes services. 12/20/2023 Hyperlipidemia, unspecified (ICD-10 - E78.5) Mr. Cornejo is an 88-year-old gentleman with CKD stage III, hypertension, hyperlipidemia and gout here for medicare annual wellness visit. Plan is as follows: Hypertension with chronic kidney disease. His blood pressure is running high in the office today. Cut back on sodium intake. Advised appropriate hydration, cardio exercises and weight loss. Continue Carvedilol 6.25 MG and Losartan 25 MG once a day. Advised appropriate hydration. Hyperlipidemia. Last lipid panel within normal limits. Continue Atorvastatin 10 MG at night. Gout. Stable on Allopurinol 100 MG twice a day. Chronic kidney disease stage 4. He does not appear to be in volume overload. Advised appropriate hydration. Avoid NSAIDs. He sees Dr. Segura. Impaired fasting glucose. A1c 5.9. Fasting sugars 130. Dietary restrictions, regimental exercise and weight loss advised. Eye screening. He sees his sandblaster glass regularly. Dental screening. He sees dentist regularly. Colon cancer screening. He had his colonoscopy done every 5 years. Immunizations. He is up-to-date on his COVID, influenza, shingles and pneumonia vaccinations. General health concerns discussed with patient. Scribe services used to formulate this note under HIPAA compliance and under [place] law mandated for scribe services. Patient aware of service. Verbal consent and written consent taken from the patient. Patient understands and verbalizes understanding of the scribes services and all questions answered regarding scribes services. Patient agrees to use of scribes services. 12/20/2023 Chronic kidney disease, unspecified (ICD-10 - N18.9) Mr. Cornejo is an 88-year-old gentleman with CKD stage III, hypertension, hyperlipidemia and gout here for medicare annual wellness visit. Plan is as follows: Hypertension with chronic kidney disease. His blood pressure is running high in the office today. Cut back on sodium intake. Advised appropriate hydration, cardio exercises and weight loss. Continue Carvedilol 6.25 MG and Losartan 25 MG once a day. Advised appropriate hydration. Hyperlipidemia. Last lipid panel within normal limits. Continue Atorvastatin 10 MG at night. Gout. Stable on Allopurinol 100 MG twice a day. Chronic kidney disease stage 4. He does not appear to be in volume overload. Advised appropriate hydration. Avoid NSAIDs. He sees Dr. Segura. Impaired fasting glucose. A1c 5.9. Fasting sugars 130. Dietary restrictions, regimental exercise and weight loss advised. Eye screening. He sees his sandblaster glass regularly. Dental screening. He sees dentist regularly. Colon cancer screening. He had his colonoscopy done every 5 years. Immunizations. He is up-to-date on his COVID, influenza, shingles and pneumonia vaccinations. General health concerns discussed with patient. Scribe services used to formulate this note under HIPAA compliance and under [place] law mandated for scribe services. Patient aware of service. Verbal consent and written consent taken from the patient. Patient understands and verbalizes understanding of the scribes services and all questions answered regarding scribes services. Patient agrees to use of scribes services. 05/17/2024 Hyperlipidemia, unspecified (ICD-10 - E78.5) Mr. Cornejo is an 88-year-old gentleman with CKD stage III, hypertension, hyperlipidemia and gout here for follow-up Plan as follows: hypertension. Blood pressure is running high in the office. His blood pressure fluctuates. We advised to monitor his blood pressure and if it is still running high at home he will call us or his explosive operator grenade Dr. Segura. Advised low-sodium diet. Hyperlipidemia. Continue on atorvastatin 10 mg daily. Gout. Continue allopurinol 100 mg daily and monitor renal function. Chronic kidney disease. He does not appear to be in volume overload. Follow-up with explosive operator grenade. Screening blood work before next appointment 01/19/2024 Chronic kidney disease, unspecified (ICD-10 - N18.9) Mr. Cornejo is an 88-year-old gentleman with CKD stage III, hypertension, hyperlipidemia and gout here for follow up. Plan is as follows: Hypertension with chronic kidney disease. Blood pressure is within reasonable limits. Continue Carvedilol 6.25 MG and Losartan 25 MG once a day. Advised appropriate hydration. Hyperlipidemia. Last lipid panel within normal limits. Continue Atorvastatin 10 MG at night. Gout. Stable on Allopurinol 100 MG twice a day. Chronic kidney disease stage 4. He does not appear to be in volume overload. Advised appropriate hydration. Avoid NSAIDs. He sees Dr. Segura. Impaired fasting glucose. A1c 5.9. Fasting sugars 130. Dietary restrictions, regimental exercise and weight loss advised. General health concerns discussed with patient. Scribe services used to formulate this note under HIPAA compliance and under [place] law mandated for scribe services. Patient aware of service. Verbal consent and written consent taken from the patient. Patient understands and verbalizes understanding of the scribes services and all questions answered regarding scribes services. Patient agrees to use of scribes services. 09/15/2023 Chronic kidney disease, unspecified (ICD-10 - N18.9) Mr. Cornejo is an 87-year-old gentleman with CKD stage III, hypertension, hyperlipidemia and gout here for follow up. Plan is as follows: Hypertension with chronic kidney disease. His blood pressure is running high in the office today. Cut back on sodium intake. Advised appropriate hydration, cardio exercises and weight loss. Continue Carvedilol 6.25 MG and Losartan 25 MG once a day. Advised appropriate hydration. Hyperlipidemia. Last lipid panel within normal limits. Continue Atorvastatin 10 MG at night. Gout. Stable on Allopurinol 100 MG twice a day. Chronic kidney disease stage 3b. He does not appear to be in volume overload. Advised appropriate hydration. Avoid NSAIDs. He sees Dr. Segura. General health concerns discussed with patient. Scribe services used to formulate this note under HIPAA compliance and under [place] law mandated for scribe services. Patient aware of service. Verbal consent and written consent taken from the patient. Patient understands and verbalizes understanding of the scribes services and all questions answered regarding scribes services. Patient agrees to use of scribes services. 01/19/2024 Impaired fasting glucose (ICD-10 - R73.01) Mr. Cornejo is an 88-year-old gentleman with CKD stage III, hypertension, hyperlipidemia and gout here for follow up. Plan is as follows: Hypertension with chronic kidney disease. Blood pressure is within reasonable limits. Continue Carvedilol 6.25 MG and Losartan 25 MG once a day. Advised appropriate hydration. Hyperlipidemia. Last lipid panel within normal limits. Continue Atorvastatin 10 MG at night. Gout. Stable on Allopurinol 100 MG twice a day. Chronic kidney disease stage 4. He does not appear to be in volume overload. Advised appropriate hydration. Avoid NSAIDs. He sees Dr. Segura. Impaired fasting glucose. A1c 5.9. Fasting sugars 130. Dietary restrictions, regimental exercise and weight loss advised. General health concerns discussed with patient. Scribe services used to formulate this note under HIPAA compliance and under [place] law mandated for scribe services. Patient aware of service. Verbal consent and written consent taken from the patient. Patient understands and verbalizes understanding of the scribes services and all questions answered regarding scribes services. Patient agrees to use of scribes services. Plan Of Treatment Pending Test Test Name Order Date MRI : Brain 07/03/2018 Comp. Metabolic Panel (14) 07/17/2018 Basic Metabolic Panel (8) 06/29/2018 MRA : Head without contrast 07/03/2018 LIPID PANEL 03/02/2022 POTASSIUM 02/25/2022 Comprehensive Metabolic Profile 01/21/20 18 Hemoglobin A1C 07/27/2018 Lipid Panel 07/17/2018 Lipid Panel 01/20/2018 Urine Microalbumin (Random) 07/17/2018 COMPREHENSIVE METABOLIC PANEL 03/04/2020 MICROALB/CREAT RATIO, RANDOM 01/20/2018 Stress Echocardiogram 09/28/2023 Future Test Test Name Order Date Hemoglobin [id number] 05/17/2024 Albumin/Creatinine Ratio,[id number] Lipid Panel-[id number] 05/17/2024 Comp. Metabolic Panel [id number] 2023 Next Appt Details Provider Name:Sage burris, 09/13/2024 01:15:00 PM, [address] [facility] [address], [place], [address], Insurance Providers Payer Name Payer Address Payer Phone Subscriber Number Group Number Insured Name Patient Relationship to Insured Coverage Start Date Coverage End Date Medicare [address] [place] [phone] [id number] CHANTALMOOSE Christianson Self - patient is the insured 0 BCBS of [facility] [address] [place] [address] [id number] MOOSE CORNEJO Self - patient is the insured 9 Medical (General) History Medical History History ICD Code hypertension, benign hyperlipidemia Cardiac murmur Carotid bruit bilateral Chronic kidney disease stage III, abdoulaye Segura Polycystic kidney disease and status pos t aspiration of a cyst Surgical History Surgery Date(Month/Year) bilateral knee replacement back surgery Hospitalization History Reason Date(Month/Year)
--- OUTSIDE RECORDS SUMMARY | 2024-08-16 17:17 | XMS_ITS | Clinical Summary ---
Author Organization [facility] Address [address] [facility] [facility] [address] [place] [address] Phone Care Team Providers Care Security Sergeant Name Role Phone Antonio Lau MD Primary Care Provider [phone] Allergies Active Allergy Reactions Criticality Noted Date Comments Amlodipine Other (see comments) 07/22/2020 Penicillamine Other (see comments) 07/22/2020 Penicillins 2020 Red Dye #40 (Allura Red) Other (see comments) 0 07/22/2020 Medications allopurinol (ZYLOPRIM) 100 MG tablet Take 1 tablet by mouth 2 (two) times a day Active atorvastatin (LIPITOR) 10 MG tablet Take 1 tablet by mouth 1 (one) time each day Active losartan (COZAAR) 25 MG tablet Take 1 tablet by mouth 1 (one) time each day Active timolol (TIMOPTIC) 0.25 % ophthalmic solution Active carvedilol (COREG) 6.25 MG tablet Take 1 tablet by mouth in the morning and 1 tablet in the evening. 2 Active sildenafil (Viagra) 25 MG tablet Take 1 tablet (25 mg total) by mouth 1 (one) time each day if needed for erectile dysfunction 30 tablet 5 3 Active Active Problems Problem Noted Date Diagnosed Date Stage 3b chronic kidney disease 09/02/2022 Secondary hyperparathyroidism of renal origin Hypertension 04/10/2021 Benign hypertensive renal disease 2020 Benign prostatic hyperplasia without outflow obs truction 2020 Chronic kidney disease 2020 Essential hypertension 2020 History of calculus of kidney 2020 Hyperkalemia 2020 Low back pain 2020 Resolved Problems Problem Noted Date Diagnosed Date Resolved Date Hyperlipidemia 2020 2020 Impaired fasting glucose 09/22/202005/2021 Localized infection of skin AND/OR subcutaneous tissue 2020 2020 Cardiac murmur 2020 2020 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 2020 Raynaud's disease 2020 2020 Transient cerebral ischemia 2020 2020 Immunizations Name Administration Dates Next Due Influenza Split High Dose Pr eservative Free IM 03/16/2021,03/13/2019,03/31/2016 Pneumococcal Conjugate 13-Valent 05/12/2016 Family History Medical History Relation Comments Diabetes Father Heart disease Father Kidney disease Mother Cancer Sibling sternal cancer Relation Status Comments Father Mother Sibling Social History Tobacco Use Types Packs/Day Years Used Date Smoking Tobacco: Never Smokeless Tobacco: Never Tobacco Cessation:Counseling Given: Not Answered Alcohol Use Standard Drinks/Week Comments No 0 (1 standard drink = 0.6 oz pur e alcohol) Sex and Gender Information Value Date Recorded Sex Assigned at Not on file Legal Sex Male 5:16 PM EST Gender Identity Not on file Sexual Orientation Not on file Last Filed Vital Signs Vital Sign Reading Time Taken Comments Blood Pressure 140/80 03/08/2023 1:52 PM EDT Pulse 52 03/08/2023 1:52 PM EDT Temperature - - Respiratory Rate - - Oxygen Saturation 96% 03/08/2023 1:52 PM EDT Inhaled Oxygen Concentration - - Weight 68.1 kg (150 lb 3.2 oz) 03/08/2023 1:52 P M EDT Height 162.6 cm (5' 4 ) 03/08/2023 1:52 PM EDT Body Mass Index 25.78 03/08/2023 1:52 PM EDT Plan of Treatment Health Maintenance Due Date Last Done Comments Pneumococcal Vaccine: 65+ Years (2 of 2 - PPSV23 or PCV20) 07/07/2016 05/12/2016 Influenza Vaccine (#1) 2024 , 03/13/2019, 03/31/2016 Hepatitis B Vaccine Aged Out No longe r eligible based on patient's age to complete this topic [place] [address] [place] [address] [place] [address] [place] [address] MEDICARE Care Teams Security Sergeant Relationship Specialty Start Date End Date Antonio Lau MD [address] [place] [address] PCP - General 06/23/20
--- OUTSIDE RECORDS SUMMARY | 2024-08-16 17:17 | XMS_ITS | Data Portability ---
Author Organization [place] [facility], Allergy Address [address] [place] [address] Care Team Providers Care Travel Attendants Name Role Phone KINSEY CLOUD Primary Care Provider Assessment No assessment recorded. Plan of Treatment Reminders Order Date Submit Date Provider Last Modified By Organization Details Last Modified Time Details Appointments Hearing Test 2024 01:00P M Hearing Test Not available Not available Not available Establish ed 15 2024 01:30P M AMBROSE EGAN MD Not available Not available Not available Lab None recorded. Referral None recorded. Procedures None recorded. Surgeries None recorded. Imaging None recorded. Medication Orders None recorded. Patient TargetsNo targets recorded. Patient InstructionsNo instructions recorded. Reason for Referral None Reported. Results Created Date Observation Date Name Description Value Unit Range Abnormal Flag Note LastModifiedBy Organization Detail LastModifiedTime 02/01/20 24 08/26/2022 imagi ng/di agnos tic resul t No observ ation record ed. [email or web address] Not Available 05:09:12 02/01/20 24 09/12/2020 imagi ng/di agnos tic resul t No observ ation record ed. [email or web address] Not Available 05:09:17 02/01/20 24 02/15/2020 imagi ng/di agnos tic resul t No observ ation record ed. [email or web address] Not Available 05:09:24 02/01/20 24 02/28/2020 imagi ng/di agnos tic resul t No observ ation record ed. [email or web address] Not Available 05:09:26 02/01/20 24 08/26/2022 audio gram No observ ation record ed. [email or web address] Not Available 05:09:40 02/01/20 24 09/12/2020 audio gram No observ ation record ed. [email or web address] Not Available 05:09:49 02/01/20 24 02/15/2020 audio gram No observ ation record ed. [email or web address] Not Available 05:10:05 Result Notes None recorded. 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, right ear; Note: Date Diagnosed : 02/15/2020 5:04 PM (H91.21) Not Available [facility] 4 03:05:23 Tinnitus 51811072 Active 2014 Tinnitus, unspecifi ed; [facility] Treatment : new problem (to examiner) : no additiona l workup planned N ote: Date Diagnosed : 07/12/2014 3:45 PM (388.30) Not Available [facility] 4 03:05:23 Essential hypertens ion 85911671 Active 2014 Hypertens ion; [facility] Treatment : new problem (to examiner) : no additiona l workup planned N ote: Date Diagnosed : 07/12/2014 3:45 PM (401.9) Not Available [facility] 4 03:05:25 Abnormal auditory perceptio n 43130141 Active 2019 Other abnormal auditory perceptio ns, left ear; Note: Date Diagnosed : 05/21/2020 2:37 PM (H93.292) Not Available [facility] 4 03:05:25 Tinnitus of left ear 25564332673 06 Active 2015 Tinnitus, left ear; Note: Date Diagnosed : 11/12/2015 3:07 PM (H93.12) Not Available [facility] 4 03:05:23 Posterior rhinorrhe a 16227874 Active 2021 Postnasal drip; Note: Date Diagnosed : 04/19/2022 7:00 AM (R09.82) Not Available [facility] 4 03:05:23 Respirato ry finding 003094428 Active 2021 Feeling of foreign body in throat; Note: Date Diagnosed : 04/19/2022 7:00 AM (R09.89) Not Available [facility] 4 03:05:24 Cardiovas cular finding 445179077 Active 2021 Feeling of foreign body in throat; Note: Date Diagnosed : 04/19/2022 7:00 AM (R09.89) Not Available [facility] 4 03:05:24 Itching of skin 726378310 Active 2015 Pruritus, unspecifi ed; Note: Date Diagnosed : 11/12/2015 3:07 PM (L29.9) Not Available [facility] 4 03:05:24 Sensorine ural hearing loss of bilateral ears 501378910 Active 2019 Sensorine ural hearing loss, bilateral ; Note: Date Diagnosed : 02/15/2020 4:03 PM (H90.3) Not Available [facility] 4 03:05:25 Bilateral tinnitus 01232201877 02 Active 2018 Tinnitus, bilateral ; Note: Date Diagnosed : 10/11/2018 1:15 PM (H93.13) Not Available [facility] 4 03:05:24 Bleeding from nose 219859260 Active 2016 Epistaxis ; Note: Date Diagnosed : 10/08/2016 1:10 PM (R04.0) Not Available [facility] 4 03:05:25 Clearing throat - hawking 561348858 Active 2023 AMBROSE EGAN MD [address] [place] [address],[place] [address], [facility] [place], [address] , [facility] - [facility] 4 08:06:26 Problem Notes None recorded. Procedures Surgical History Date Name Laterality Status Provider Name and Address Organization Details Recorded Time 01/16/20 24 Fiberoptic Laryngoscopy (Comprehensive) completed AMBROSE EGAN MD [address] [place] [address],[place] [address], [place], [address], [place] [facility] 01/23/2024 08:06:13 total knee replacement completed AMBROSE EGAN MD [address] [place] [address], [phone], [place] [facility] 01/23/2024 08:04:28 Imaging Results Imaging Date Name Status LastModified by Organiz ation Details LastModified Time 08/26/2022 imaging/diagno stic result completed Information not available 02/01/2024 05:09:12 09/12/2020 imaging/diagno stic result completed Information not available 02/01/2024 05:09:17 02/15/2020 imaging/diagno stic result completed Information not available 02/01/2024 05:09:24 02/28/2020 imaging/diagno stic result completed Information not available 02/01/2024 05:09:26 08/26/2022 audiogram completed Information not available 02/01/2024 05:09:40 09/12/2020 audiogram completed Information not available 02/01/2024 05:09:49 02/15/2020 audiogram completed Information not available 02/01/2024 05:10:05 Procedure Notes None recorded. Medical Equipment None Reported. Allergies Allergen ID Allergen Name Allergen Category Reaction Reaction Severity Criticality Documentation Date Start Date Code Code System Note Provider Name and Address Organization Details Recorded Time 50946 penicilli n V potassium medicatio n other Not available Not available 10/25/2023 5 RxNorm React ion: unkno wn, unspe cifie d;; Not Available [facility] 00:48:31 Medications Name Sig Start Date Stop Date Status Note LastModified by Organization Details LastModified Time losartan 50 mg tablet 02/14 completed Medicati on ID: [id number] D uration Value: 30 Reason: () Brand Name: losartan Send Method: E-Prescr ibed Sub s Allowed: subs OK Speci al Instruct ion: TAKE 1 TABLET BY MOUTH EVERY DAY Medi cationGe nericNam e: losartan Not Available Not Available Not Available clonidine HCl 0.1 mg tablet 01/15 completed Medicati on ID: [id number] B rand Name: clonidin e HCl Send Method: E-Prescr ibed Sub s Allowed: subs OK Medic ationGen ericName : clonidin e HCl Not Available Not Available Not Available carvedilo l 6.25 mg tablet TAKE 1 TABLET BY MOUTH TWICE A DAY WITH FOOD active Not Available Not Available No t Available atorvasta tin 10 mg tablet active Not Available Not Available Not Available ciproflox acin 250 mg tablet TAKE 2 TAB BY MOUTH 1 HOUR PRIOR TO INJECTIO N 01/15 completed Not Available Not Available Not Available allopurin ol 100 mg tablet active Not Available Not Available Not Available Diovan 80 mg tablet 10/11 completed Medicati on ID: [id number] Re ason: () Brand Name: Diovan S end Method: E-Prescr ibed Sub s Allowed: subs OK Medic ationGen ericName : Diovan Not Available Not Available Not Available triamcino lone acetonide 0.1 % topical cream APPLY TO TRUNK AND EXTREMIT IES DAILY AFTER SHOWER 01/15 completed Not Available Not Available Not Available benzonata te 100 mg capsule TAKE 1 CAPSULE BY MOUTH THREE TIMES A DAY NEEDED FOR 7 DAYS 01/15 completed Not Available Not Available Not Available losartan 25 mg tablet active Not Available Not Available Not Available timolol maleate 0.5 % eye drops active Medicati on ID: [id number] B rand Name: timolol maleate Send Method: E-Prescr ibed Sub s Allowed: subs OK Medic ationGen ericName : timolol maleate Not Available Not Available Not Available sodium polystyre ne sulfonate oral powder TAKE 15 G ORALLY TWICE WEEKLY FOR 90 DAYS active Not Available Not Available No t Available fluocinol one acetonide oil 0.01 % ear drops into both ears 01/15 completed Medicati on ID: [id number] Bonnie mejia By Name: Ambrose cornelius MD Brand Name: fluocino lone acetonid e oil Send Method: E-Prescr ibed Sub s Allowed: subs OK Speci al Instruct ion: Apply 4 drops to each ear 2 times a week and as needed M raul Martínez Name: fluocino lone acetonid e oil Not Available Not Available Not Available Vitals Date Recorded Body height Body mass index (BMI) Body weight Provider Name and Address Organization Details Last Updated DateTime 01/16/2024 157.48 cm 26 kg/m2 23692.12 g Rose Mary Gonzalez [facility] 01/16/2024 14:46:28 Social History None recorded. Functional Status None recorded. Mental Status None recorded. Family History Nothing Reported Notes:Cardiovascular: Heart disease in a male, diagnosed at unknown age - father. Medical History Condition Response Hypertension Y Past Encounters Encounter ID Performer Location Encounter Start Date Encounter Closed Date Diagnosis/Indication Diagnosis SNOMED-CT Code Diagnosis ICD10 Code Diagnosis Note [id number] AMBROSE EGAN MD [facility] [address] [address] 01/16/2024 13:54:42 01/16/2024 15:17:44 Clearing throat - hawking [id number] R05.9 88-year-ol d male presents today for assessment . He notes throat clearing, increased mucus in his throat. He does have hoarseness sometimes. FOL showed some cobbl[place] ing and a small amount of mucus, but no lesion. Reassuranc e was given. Recommend hydration. Could try a nasal steroid if motivated but his symptoms do not seem particular bothersome . He reports that intermitte nt use of the DermOtic oil has really helped the left ear symptoms and exam is normal today. Will follow-up in a year. Can check hearing at that visit. Health Concerns Section Related Observation LastModified by Organization Detai ls LastModified Time None Recorded Concern Status LastModified by Organization Details LastModified Time None Recorded Advance Directives Directive None Recorded Payers Encounter Date Sequence Insurance Name Policy Number Policy Hackett Covered Member ID Hackett Member ID Guarantor Name 01/16/2024 1 [place] [employer] Terence Sammy Nimo [id number] Terence Suero 01/16/2024 2 [place] [id number] Terence Christianson Nimo [id number] Terence Suero Notes Date Note Type Note Provider Name and Address Organization Details Recorded Time 01/16/2024 text/html 88-year-old male presents today for assessment. He notes throat clearing, increased mucus in his throat. He does have hoarseness sometimes.He reports that intermittent use of the DermOtic oil has really helped the left ear symptoms. AMBROSE EGAN MD [address] [place] [address], [place], [address], [facility] - [facility] 01/23/2024 08:08:17
--- OUTSIDE RECORDS SUMMARY | 2024-08-16 17:17 | XMS_ITS ---
Author Organization [facility] Address [address] [place] [address] Care Team Providers Care Leather Cutter Name Role Phone PEDRO LUIS EUCEDA Primary Care Provider Sage Arcos Unavailable [phone] Allergies Allergen (clinical drug ingredient) Drug/Non Drug Allergy documented on EMR Reaction Allergy Type Onset Date Status red dye (uncoded) Unknown Allergy Ac tive amlodipine Amlodipine Besylate Unknown Drug Allergy Active penicillamine Penicillamine Unknown Drug Allergy Active REASON FOR VISIT cough Medications Medication SIG (Take, Route, Frequency, Duration) Notes Start Date End Date Status Benzonatate 100 MG 1 capsule as needed Orally Three times a day for 7 days 07/27/2023 Not-Taking Benzonatate 100 MG 1 capsule as needed Orally Three times a day for 21 days 04/11/2024 Active Losartan Potassium 25 MG 1 tablet Orally Once a day for 90 days Active Allopurinol 100 MG 1 tablet Orally twic e a day for 90 days Active Carvedilol 6.25 MG TAKE 1 TABLET BY [facility] TWICE A DAY WITH FOOD for Active PreserVision AREDS - as directed Orally TWICE A DAY Active Hydrocortisone Activ e Veltassa 8.4 GM 1 packet dissolved i n water. Take other medications at least 3 hours before or 3 hours after this medication Orally once a week Active Timolol Maleate 0.5 % 1 drop into both e ye Ophthalmic twice a day Active Atorvastatin Calcium 10 MG 1 tablet Oral ly Once a day for 90 days Active Vital Signs Temperature 98.3 degrees Fahrenheit 04/11/20 24 Oximetry 95 % 04/11/2024 Heart Rate 70 /min 04/11/2024 Blood pressure systolic 132 mm Hg 04/11/20 24 Blood pressure diastolic 76 mm Hg 024 Weight 142 lbs 04/11/2024 BMI 26.3 kg/m2 04/11/2024 Height 61.61 in 04/11/2024 Encounters Encounter Location Date Provider Diagnosis [facility] [address] [place] [address] 04/11/2024 Sage Arcos Cough R05.9 Assessments Encounter Date Diagnosis (ICD Code) Assessment Notes Treatment Notes Treatment Clinical Notes Section Notes 04/11/2024 Cough (ICD-10 - R05.9) Mr. Cornejo is an 88-year-old gentleman with CKD stage III, hypertension, hyperlipidemia and gout here for cough. Plan as follows: Cough - DDx viral URI. Lungs are CTAB. Started patient on benzonatate. He can also use [id number] Mucinex. Advised patient that if he develops any fever, chills, productive cough with yellowish or greenish mucus then he should contact the office to get an accident to rule out any abnormalities. I have rendered the services for this patient under direct supervision of Dr. Cloud, who did not see the patient but was available upon request Plan Of Treatment Medication Medication Name Sig Start Date Stop Date Notes Benzonatate 100 MG 1 capsule as needed Orally Three times a day for 21 days 04/11/2024 Next Appt Details Follow Up: next appt, Reason : Provider Name:Sage burris, 09/13/2024 01:15:00 PM, [address] [place] [address], [place], [address], Progress Notes * CHANTALMOOSE ADOB:1935 (88 yo M)Acc No.[id number]:04/11/2024 Patient:?MOOSE CORNEJO Provider:?Sage Arcos :1935???Age:88 Y???Sex:Male Federico e:04/11/2024 Address:[address] [place], [place] [id number] Pcp:KINSEY CLOUD Subjective: * Chief Complaints: * ???Cough * HPI: ???Internal Medicine:?Mr. Cornejo is an 88-year-old gentleman with CKD stage III, hypertension, hyperlipidemia and gout here for cough. He states that it started 10 days ago with productive cough bringing up yellow phlegm, but now it has been clear. No fever, chills. No congestion. He had single episode of chills initially that has resolved. He states that his cough is worse at night, does not wake him up. Also he has been having raspy voice because of the cough.COVID negative. He denies any other active issues or concerns. * ROS:?General/Constitutional:?Overall health?Good.?Change in appetite?denies.?Chills?denies.?Fever?denies.?Night sweats?denies.?Sleep disturbance?denies.?Weight gain?denies.?Weight loss?denies.?Neurologic:?Difficulty speaking?denies.?Dizziness?denies.?Gait abnormality?denies.?Headache?denies.?Loss of strength?denies.?Memory loss?denies.?Seizures?denies.?Tingling/Numbness?denies.?Ophthalmologic:?Blurred vision?denies.?Discharge?denies.?Dry eye?denies.?Red eye?denies.?ENT:?Change in Voice?Denies.?Cold Symptoms?Denies.?Cough?Denies.?Dizziness?Denies.?Nasal Congestion?Denies.?Otalgia?Denies.?postnasal drip?Denies.?Blocked ear?denies.?Nosebleed?denies.?Snoring?denies.?Cardiovascular:?Diaphoresis?Denies.?Pedal Edema?Denies.?PND (Paroxsymal nocturnal dyspnea)?Denies.?Chest pain?denies.?Difficulty laying flat?denies.?Dyspnea on exertion?denies.?Heart murmur?denies.?Orthopnea?denies.?Respiratory:?Snoring?denies.?Patient complaining of?productive clear cough.?Asthma?denies.?Cough?denies.?Shortness of breath with exertion?denies.?Sputum production?denies.?Wheezing?denies.?Gastrointestinal:?Change in bowel habits?denies.?Constipation?denies.?Decreased appetite?denies.?Diarrhea?denies.?Heartburn?denies.?Nausea?denies.?Vomiting?abram es.?Musculoskeletal:?tingling/numbness?Denies.?myalgias?Denies.?Joint Swelling?Denies.?extremeties?normal.?Arthritis?denies.?Back problems?denies.?Carpal tunnel?denies.?Joint stiffness?denies.?Muscle aches?denies.?Endocrine:?Bowel Changes?Denies.?Breast Discharge?Denies.?poor libido?Denies.?Cold intolerance?denies.?Excessive sweating?denies.?Excessive thirst?denies.?Frequent urination?denies.?Thyroid problems?denies.?Skin:?Bruising?Denies.?Eczema?denies.?Hair changes?denies.?Rash?denies.?Skin lesion(s)?denies.?Psychiatric:?Anxiety?denies.?Depressed mood?denies.?Difficulty sleeping?denies.?Nervous breakdown?denies.?Substance abuse?denies.?Urology:?abnormal menstrual bleeding?denies.?blood in urine?denies.?burning on urination?denies.?difficulty urinating?denies.?discharge?denies.?dysuria?denies.? * Medical History:? * Medications:?TakingPreserVis ion AREDS - Capsule as directed Orally TWICE A DAY Hydrocortisone Veltassa 8.4 GM Packet 1 packet dissolved in water. Take other medications at least 3 hours before or 3 hours after this medication Orally once a week Timolol Maleate 0.5 % Solution 1 drop into both eye Ophthalmic twice a day Atorvastatin Calcium 10 MG Tablet 1 tablet Orally Once a day Losartan Potassium 25 MG Tablet 1 tablet Orally Once a day Allopurinol 100 MG Tablet 1 tablet Orally twice a day Carvedilol 6.25 MG Tablet TAKE 1 TABLET BY MOUTH TWICE A DAY WITH FOOD Taking PreserVision AREDS - Capsule as directed Orally TWICE A DAY Taking Hydrocortisone Taking Veltassa 8.4 GM Packet 1 packet dissolved in water. Take other medications at least 3 hours before or 3 hours after this medication Orally once a week Taking Timolol Maleate 0.5 % Solution 1 drop into both eye Ophthalmic twice a day Taking Atorvastatin Calcium 10 MG Tablet 1 tablet Orally Once a day Taking Losartan Potassium 25 MG Tablet 1 tablet Orally Once a day Taking Allopurinol 100 MG Tablet 1 tablet Orally twice a day Taking Carvedilol 6.25 MG Tablet TAKE 1 TABLET BY MOUTH TWICE A DAY WITH FOOD Not-TakingBenzonatate 100 MG Capsule 1 capsule as needed Orally Three times a day Medication List reviewed and reconciled with the patientNot- Taking Benzonatate 100 MG Capsule 1 capsule as needed Orally Three times a day Medication List reviewed and reconciled with the patient * Allergies:?Penicillamine: Al lergyred dye: AllergyAmlodipine Besylate: Side Effectsno[Allergies Verified] Objective: * Vitals:?Temp: 98.3 F, Oxygen sat %: 95 %, HR: 70 /min, BP: 132/76 mm Hg, Wt: 142 lbs, BMI: 26.3 Index, Ht: 61.61 in. * Examination: ???General Examination: ?Psychiatry?Normal.?GENERAL APPEARANCE:?Well developed, well nourished, in no acute distress.?MUSCULOSKELETAL:?Normal.?HEAD:?Normocephalic, atraumatic.?EYES:?Pupils equal, round, reactive to light and accommodation, sclera non-icteric.?EARS:?Normal.?ORAL CAVITY:?Normal.?THROAT:?Clear.?OROPHARYNX?Normal.?SINUSES?Normal.?NECK/THYROID:?Neck supple, full range of motion, no cervical lymphadenopathy.?SKIN:?Warm and dry, no suspicious lesions.?HEART:?grade 1/6 systolic murmur at right sternal border, .?LUNGS:?Normal.?BREASTS:?__.?ABDOMEN:?Soft, nontender, nondistended, bowel sounds present, normal.?EXTREMITIES:?Normal.?PERIPHERAL PULSES:?Normal.?NEUROLOGIC:?Nonfocal,? appropriate?motor strength normal upper and lower extremities, sensory exam intact.?FEMALE GENITOURINARY:?__.?MALE GENITOURINARY:?__.?PODIATRIC:?Normal.?Wholesale Buyer? .? Assessment: * Assessment: 1.?Cough - R05.9 (Primary)?? ? Mr. Cornejo is an 88-year-old gentleman with CKD stage III, hypertension, hyperlipidemia and gout here for cough. Plan as follows: Cough - DDx viral URI. Lungs are CTAB. Started patient on benzonatate. He can also use [id number] Mucinex. Advised patient that if he develops any fever, chills, productive cough with yellowish or greenish mucus then he should contact the office to get an accident to rule out any abnormalities. I have rendered the services for this patient under direct supervision of Dr. Cloud, who did not see the patient but was available upon request Plan: * Treatment: * Procedure Codes:? * Follow Up:?next appt * * Sign off status: Completed true * Provider:?Sage Arcos Date:?04/11/20 24 Generated for Scooby zheng/Julius/Melissa on:?08/16/2024 05:17 PM EST History and Physical Notes * HPI (History of Present Illness) Category Sub-Category Detail Notes Category Not es Internal Medicine Mr. Cornejo i s an 88-year-old gentleman with CKD stage III, hypertension, hyperlipidemia and gout here for cough. He states that it started 10 days ago with productive cough bringing up yellow phlegm, but now it has been clear. No fever, chills. No congestion. He had single episode of chills initially that has resolved. He states that his cough is worse at night, does not wake him up. Also he has been having raspy voice because of the cough.COVID negative. He denies any other active issues or concerns. Examination Category Sub-Category Detail Notes Category Not es General Examination GENERAL APPEARANCE: Well dev eloped, well nourished, in no acute distress HEAD: Normocephalic, atrau matic EYES: Pupils equal, round, reactive to light and accommodation, sclera non-icteric EARS: Normal THROAT: Clear NECK/THYROID: Neck supple, full ra nge of motion, no cervical lymphadenopathy HEART: grade 1/6 systolic m urmur at right sternal border, LUNGS: Normal ABDOMEN: Soft, nontender, non distended, bowel sounds present, normal NEUROLOGIC: Nonfocal, appropriat e motor strength normal upper and lower extremities, sensory exam intact SKIN: Warm and dry, no red picious lesions EXTREMITIES: Normal PERIPHERAL PULSES: Normal BREASTS: __ MUSCULOSKELETAL: Normal MALE GENITOURINARY: __ FEMALE GENITOURINARY: __ ORAL CAVITY: Normal PODIATRIC: Normal Psychiatry Normal OROPHARYNX Normal SINUSES Normal Wholesale Buyer
--- OUTSIDE RECORDS SUMMARY | 2024-08-16 17:17 | XMS_ITS ---
Author Organization [facility] Address [address] [place] [address] Care Team Providers Care Senior Sous Chef Name Role Phone KINSEY CLOUD Primary Care Provider REASON FOR VISIT Atorvastatin refill Medications Medication SIG (Take, Route, Frequency, Duration) Notes Start Date End Date Status Atorvastatin Calcium 10 MG 1 tablet Oral ly Once a day for 90 days Active Encounters Encounter Location Date Provider Diagnosis [address] [address] 06/14/2024 KINSEY CLOUD Plan Of Treatment Medication Medication Name Sig Start Date Stop Date Notes Atorvastatin Calcium 10 MG 1 tablet Oral ly Once a day for 90 days Next Appt Details Provider Name:aSge burris, 09/13/2024 01:15:00 PM, [address] [place] [address], [phone], Progress Notes * MOOSE CORNEJO ADOB:1935 (88 yo M)Acc No.[id number]:06/14/2024 Patient:?MOOSE CORNEJO :1935???Age:88 Y???Sex:Male Address:[address] [place] [address] * Refills? Refill Atorvastatin Calcium Tablet, 10 MG, Orally, 90, 1 tablet, Once a day, 90 days, Refills=3 * true * Date:? Generated for Minniei norm/Julius/eTransmitting on:?08/16/2024 05:17 PM EST
--- OUTSIDE RECORDS SUMMARY | 2024-08-16 17:18 | XMS_ITS ---
Author Organization [facility] Address [address] [place] [address] Care Team Providers Care Furnace Worker Name Role Phone KINSEY CLOUD Primary Care Provider [phone] Allergies Allergen (clinical drug ingredient) Drug/Non Drug Allergy documented on EMR Reaction Allergy Type Onset Date Status red dye (uncoded) Unknown Allergy Ac tive amlodipine Amlodipine Besylate Unknown Drug Allergy Active penicillamine Penicillamine Unknown Drug Allergy Active REASON FOR VISIT 4 month f/u Medications Medication SIG (Take, Route, Frequency, Duration) Notes Start Date End Date Status Benzonatate 100 MG 1 capsule as needed Orally Three times a day for 21 days Active Benzonatate 100 MG 1 capsule as needed Orally Three times a day for 7 days 07/27/2023 Not-Taking Veltassa 8.4 GM 1 packet dissolved i n water. Take other medications at least 3 hours before or 3 hours after this medication Orally once a week Active Hydrocortisone Activ e PreserVision AREDS - as directed Orally TWICE A DAY Active Carvedilol 6.25 MG TAKE 1 TABLET BY EDMAR TWICE A DAY WITH FOOD for 90 Active Allopurinol 100 MG 1 tablet Orally twic e a day for 90 days Active Losartan Potassium 25 MG 1 tablet Orally Once a day for 90 days Active Atorvastatin Calcium 10 MG 1 tablet Oral ly Once a day for 90 days Active Timolol Maleate 0.5 % 1 drop into both e ye Ophthalmic twice a day Active Social History Tobacco Use: Social History Observation Description Date Details (start date - stop date) Never Smoker NA - NA Tobacco Use/Smoking Question Answer Notes Are you a nonsmoker Alcohol Screen (Audit-C) Question Answer Notes Did you have a drink containing alcohol in the p ast year? No Points 0 Interpretation Negative Vital Signs Temperature 97.1 degrees Fahrenheit 05/17/20 24 Oximetry 97 % 05/17/2024 Heart Rate 70 /min 05/17/2024 Blood pressure systolic 160 mm Hg 05/17/20 24 Blood pressure diastolic 80 mm Hg 024 Weight 146.2 lbs 05/17/2024 BMI 27.08 kg/m2 05/17/2024 Height 61.61 in 05/17/2024 Encounters Encounter Location Date Provider Diagnosis [facility] [address] [address] 05/17/2024 EUCEDA JESSICAGarett Essential (primary) hypertension I10 ; Chronic kidney disease, unspecified N18.9 ; Impaired fasting glucose R73.01 and Hyperlipidemia, unspecified E78.5 Assessments Encounter Date Diagnosis (ICD Code) Assessment Notes Treatment Notes Treatment Clinical Notes Section Notes 05/17/2024 Essential (primary) hypertension (ICD-10 - I10) Mr. Cornejo is an 88-year-old gentleman with CKD stage III, hypertension, hyperlipidemia and gout here for follow-up Plan as follows: hypertension. Blood pressure is running high in the office. His blood pressure fluctuates. We advised to monitor his blood pressure and if it is still running high at home he will call us or his combination technician Dr. Segura. Advised low-sodium diet. Hyperlipidemia. Continue on atorvastatin 10 mg daily. Gout. Continue allopurinol 100 mg daily and monitor renal function. Chronic kidney disease. He does not appear to be in volume overload. Follow-up with combination technician. Screening blood work before next appointment 05/17/2024 [...] home he will call us or his combination technician Dr. Segura. Advised low-sodium diet. Hyperlipidemia. Continue on atorvastatin 10 mg daily. Gout. Continue allopurinol 100 mg daily and monitor renal function. Chronic kidney disease. He does not appear to be in volume overload. Follow-up with combination technician. Screening blood work before next appointment 05/17/2024 Impaired fasting glucose (ICD-10 - R73.01) Mr. Cornejo is an 88-year-old gentleman with CKD stage III, hypertension, hyperlipidemia and gout here for follow-up Plan as follows: hypertension. Blood pressure is running high in the office. His blood pressure fluctuates. We advised to monitor his blood pressure and if it is still running high at home he will call us or his combination technician Dr. Segura. Advised low-sodium diet. Hyperlipidemia. Continue on atorvastatin 10 mg daily. Gout. Continue allopurinol 100 mg daily and monitor renal function. Chronic kidney disease. He does not appear to be in volume overload. Follow-up with combination technician. Screening blood work before next appointment 05/17/2024 Hyperlipidemia, unspecified (ICD-10 - E78.5) Mr. Cornejo is an 88-year-old gentleman with CKD stage III, hypertension, hyperlipidemia and gout here for follow-up Plan as follows: hypertension. Blood pressure is running high in the office. His blood pressure fluctuates. We advised to monitor his blood pressure and if it is still running high at home he will call us or his combination technician Dr. Segura. Advised low-sodium diet. Hyperlipidemia. Continue on atorvastatin 10 mg daily. Gout. Continue allopurinol 100 mg daily and monitor renal function. Chronic kidney disease. He does not appear to be in volume overload. Follow-up with combination technician. Screening blood work before next appointment Plan Of Treatment Medication Medication Name Sig Start Date Stop Date Notes Benzonatate 100 MG 1 capsule as needed Orally Three times a day for 21 days Future Test Test Name Order Date Hemoglobin [id number] 05/17/2024 Albumin/Creatinine Ratio,[id number] Lipid Panel-[id number] 05/17/2024 Comp. Metabolic Panel [id number] 2023 Next Appt Details Follow Up: 4 Months- Maribell EMERSON son: Provider Name:Sage burris, 09/13/2024 01:15:00 PM, [address] [place] [address], [id number], Progress Notes * MOOSE CORNEJO ADOB:1935 (88 yo M)Acc No.[id number]:05/17/2024 Progress Notes Patient:?MOOSE CORNEJO Provider:?KINSEY CLOUD MD :1935???Age:88 Y???Sex:Male Federico e:05/17/2024 Address:[address] [place] [address], [id number] Subjective: * Chief Complaints: * ???4 month f/u * HPI: ???Internal Medicine:?Mr. Cornejo is an 88-year-old gentleman with CKD stage III, hypertension, hyperlipidemia and gout here for follow-up.? He is in his usual state of health.? He is exercising 4-5 days a week without any exertional chest pain pressure or shortness of breath.? He recently had an echocardiogram at [facility] and results are not available.? He sleeps fine, appetite is good.? No anxiety or depression.? He takes care of his who has progressive dementia.? No other issues today. * ROS:?General/Constitutional:?Overall health?Good.?Change in appetite?denies.?Chills?denies.?Fever?denies.?Night sweats?denies.?Sleep disturbance?denies.?Weight [...] on urination?denies.?difficulty urinating?denies.?discharge?denies.?dysuria?denies.? * Medical History:? * Surgical History:?bilateral knee replacement back surgery * Hospitalization/Major Diagno stic Procedure:? * Family History:?Father: dece ased, heart attack.?Mother: , renal disease.? * Social History:?Tobacco Use:?Tobacco Use/Smoking?Are you a?nonsmoker ???Drugs/Alcohol:?Drugs?Have you used drugs other than those for medical reasons in the past 12 months??No ?Alcohol Screen (Audit-C)?Did you have a drink containing alcohol in the past year??No ?Points?0 ?Interpretation?Negative ???Miscellaneous:?Exercise: Patient exercises, daily, for 1-2 hours a day. ?Marital status: . ?Occupation: Retired. * Medications:?TakingPreserVis ion AREDS - Capsule as [...] as needed Orally Three times a day Not-Taking Benzonatate 100 MG Capsule 1 capsule as needed Orally Three times a day DiscontinuedBenzonatate 100 MG Capsule 1 capsule as needed Orally Three times a day Medication List reviewed and reconciled with the patientDiscontinued Benzonatate 100 MG Capsule 1 capsule as needed Orally Three times a day Medication List reviewed and reconciled with the patient * Allergies:?Penicillamine: Al lergyred dye: AllergyAmlodipine Besylate: Side Effectsno[Allergies Verified] Objective: * Vitals:?Temp: 97.1 F, Oxygen sat %: 97 %, HR: 70 /min, BP: 180/80 mm Hg, 160/80 mm Hg, Wt: 146.2 lbs, BMI: 27.08 Index, Ht: 61.61 in. * ???Past Orders: ???Lab:Hgb A1c with eAG Simona diamond-[id number] (Order Date - 09/06/2023) (Collection Date & Time - 09/06/2023 07:15 AM) ? Value Reference Range ?Hemoglobin A1c 5.9 H 4.8-5 .6 - % ?Estim. Avg Glu (eAG) 123 - mg/dL ???Lab:Albumin/Creatinine Ra rfuino,Urine-[id number] (Order Date - 09/06/2023) (Collection Date & Time - 09/06/2023 07:15 AM) ? Value Reference Range ?Creatinine, Urine 79.8 No t Estab. - mg/dL ?Albumin, Urine 58.4 Not E stab. - ug/mL ?Alb/Creat Ratio 73 H 0-29 - mg/g creat ???Lab:Lipid Panel-[id number] (O rder Date - 09/06/2023) (Collection Date & Time - 09/06/2023 07:15 AM) ? Value Reference Range ?Cholesterol, Total 166 1 00-199 - mg/dL ?Triglycerides 71 0-149 - mg/dL ?HDL Cholesterol 60 >39 - mg/dL ?VLDL Cholesterol Rui 14 5-40 - mg/dL ?LDL Chol Calc ([facility]) 92 0-99 - mg/dL ???Lab:Comp. Metabolic Panel [id number] (Order Date - 09/06/2023) (Collection Date & Time - 09/06/2023 07:15 AM) ? Value Reference Range ?Glucose 130 H 70-99 - mg/d L ?BUN 61 H 8-27 - mg/dL ?Creatinine 2.09 H 0.76-1.27 - mg/dL ?BUN/Creatinine Ratio 29 H 10-24 - ?Sodium 143 134-144 - mmo l/L ?Potassium 5.8 H 3.5-5.2 - mmol/L ?Chloride 107 H 96-106 - mm ol/L ?Carbon Dioxide, Total 20 20-29 - mmol/L ?Calcium 9.7 8.6-10.2 - m g/dL ?Protein, Total 7.0 6.0-8 .5 - g/dL ?Albumin 4.2 3.7-4.7 - g/ dL ?Globulin, Total 2.8 1.5- 4.5 - g/dL ?A/G Ratio 1.5 1.2-2.2 - ?Bilirubin, Total 0.6 0.0 -1.2 - mg/dL ?Alkaline Phosphatase 111 44-121 - IU/L ?AST (SGOT) 18 0-40 - IU /L ?ALT (SGPT) 12 0-44 - IU /L ?eGFR 30 L >59 - mL/min/1. 73 * Examination: ???General Examination: ?Psychiatry?Normal.?GENERAL APPEARANCE:?Well developed, well nourished, in no acute distress.?MUSCULOSKELETAL:?Normal.?HEAD:?Normocephalic, atraumatic.?EYES:?Pupils equal, round, reactive to light and accommodation, sclera non-icteric.?EARS:?Normal.?ORAL CAVITY:?Normal.?THROAT:?Clear.?OROPHARYNX?Normal.?SINUSES?Normal.?NECK/THYROID:?Neck supple, full range of motion, no cervical lymphadenopathy.?SKIN:?Warm and dry, no suspicious lesions.?HEART:?grade 1/6 systolic murmur at right sternal border, .?LUNGS:?Normal.?BREASTS:?__.?ABDOMEN:?Soft, nontender, nondistended, bowel sounds present, normal.?EXTREMITIES:?Normal.?PERIPHERAL PULSES:?Normal.?NEUROLOGIC:?Nonfocal,? appropriate?motor strength normal upper and lower extremities, sensory exam intact.?FEMALE GENITOURINARY:?__.?MALE GENITOURINARY:?__.?PODIATRIC:?Normal.?Establishment Guide? .? Assessment: * Assessment: 1.?Essential (primary) hyper tension - I10 (Primary)???2.?Chronic kidney disease, unspecified - N18.9???3.?Impaired fasting glucose - R73.01???4.?Hyperlipidemia, unspecified - E78.5??? Mr. Cornejo is an 88-year-old g entleman with CKD stage III, hypertension, hyperlipidemia and gout here for follow-up Plan as follows: hypertension.? Blood pressure is running high in the office.? His blood pressure fluctuates.? We advised to monitor his blood pressure and if it is still running high at home he will call us or his combination technician Dr. Segura.? Advised low-sodium diet. Hyperlipidemia.? Continue on atorvastatin 10 mg daily. Gout.? Continue allopurinol 100 mg daily and monitor renal function. Chronic kidney disease.? He does not appear to be in volume overload.? Follow-up with combination technician. Screening blood work before next appointment Plan: * Treatment: 2.?Impaired fasting glucose?LAB: Hemoglobin [id number] (Ordered for 05/17/2024) 3.?Others? Start Benzonatate Capsule, 100 MG, 1 capsule as needed, Orally, Three times a day, 21 days, 63 Capsule, Refills 0.?? * Procedure Codes:?G2211 Compl ex e/m visit add on * Follow Up:?4 Months- AW * * Sign off status: Completed true * Provider:?KINSEY CLOUD MD Date:?05/17 Generated for Scooby zheng/Julius/Benedictoitting on:?08/16/2024 05:17 PM EST History and Physical Notes * HPI (History of Present Illness) Category Sub-Category Detail Notes Category Not es Internal Medicine Mr. Cornejo i s an 88-year-old gentleman with CKD stage III, hypertension, hyperlipidemia and gout here for follow-up. He is in his usual state of health. He is exercising 4-5 days a week without any exertional chest pain pressure or shortness of breath. He recently had an echocardiogram at [facility] and results are not available. He sleeps fine, appetite is good. No anxiety or depression. He takes care of his who has progressive dementia. No other issues today Examination Category Sub-Category Detail Notes Category Not [...] Normal Psychiatry Normal OROPHARYNX Normal SINUSES Normal Establishment Guide
== END 2024-08-16 14:51 | disposition home or self-care (01) ==
PROVIDERS: PCP Hospitalist; Visit Provider Internal Medicine Nephrology
DX: N25.81 Secondary hyperparathyroidism of renal origin (principal); E87.5 Hyperkalemia; N28.1 Cyst of kidney, acquired; I10 Essential (primary) hypertension; N18.32 Chronic kidney disease, stage 3b
CPT/HCPCS: 99214

== ENCOUNTER → 2024-08-16 14:06 | Outpatient (BNVA) | payer MEDICARE, SELFPAY | PROVIDERS: PCP Hospitalist; Visit Provider Internal Medicine Nephrology | DX: I12.9 Hypertensive chronic kidney disease with stage 1 through stage 4 chronic kidney disease, or unspecified chronic kidney disease (principal); N18.32 Chronic kidney disease, stage 3b; N25.81 Secondary hyperparathyroidism of renal origin; E87.5 Hyperkalemia; N28.1 Cyst of kidney, acquired | CPT/HCPCS: 99212 ==